=== PATIENT | female | born 1975 | race Caucasian/White ===

== ENCOUNTER → 2018-01-16 | Outpatient (CLI) | payer OTHER | LOC: FIMAGING 09:11 | PROVIDERS: ATTEND Obstetrics & Gynecology | DX: O09.522 Supervision of elderly multigravida, second trimester (principal); D69.6 Thrombocytopenia, unspecified; Z3A.22 22 weeks gestation of pregnancy ==

== ENCOUNTER → 2018-03-27 | Outpatient (CLI) | payer OTHER | LOC: FIMAGING 07:34 | PROVIDERS: ATTEND Obstetrics & Gynecology | DX: O09.523 Supervision of elderly multigravida, third trimester (principal); D69.6 Thrombocytopenia, unspecified; Z3A.33 33 weeks gestation of pregnancy ==

== ENCOUNTER 2018-05-10 22:34 | Inpatient (IN) | payer OTHER ==
[2018-05-10] MEDS ORDERED: OLIVE OIL 118 ML BTL ONE (22:52)
[2018-05-10] MEDS ORDERED: AMMONIA AROMATIC 1 EACH AMP IH ONE (22:52)
[2018-05-10] MEDS ORDERED: LIDOCAINE 1% 300 MG/30 ML SDV ONE (22:52)
[2018-05-10] MEDS ORDERED: TERBUTALINE SULFATE 1 MG/ML VIAL ONE (22:53)
[2018-05-10] MEDS ORDERED: OXYTOCIN 10 UNIT/ML VIAL ONE (22:53)
[2018-05-10] MEDS ORDERED: MISOPROSTOL 200 MCG TAB ONE (22:53)
[2018-05-10] MEDS ORDERED: IBUPROFEN 600 MG TAB PO PRN (23:20)
[2018-05-10] MEDS ORDERED: MISOPROSTOL 200 MCG TAB PR PRN (23:20)
[2018-05-10] MEDS ORDERED: EPSOM SALT 454 GM TP PRN (23:20)
[2018-05-10] MEDS ORDERED: OXYTOCIN/RINGERS LACTATE 1,000 ML IV PRN (23:20)
[2018-05-10] MEDS ORDERED: OLIVE OIL 118 ML BTL MISC PRN (23:20)
[2018-05-10] MEDS ORDERED: LIDOCAINE 1% 300 MG/30 ML SDV SC PRN (23:20)
[2018-05-10] MEDS ORDERED: LR 1,000 ML IV PRN (23:20)
[2018-05-10] MEDS ORDERED: TERBUTALINE SULFATE 1 MG/ML VIAL IV PRN (23:20)
--- NOTE | 2018-05-11 02:03 | PDGENHP ---
History and Physical History and Physical: CARE: [facility] HPI: Patient is a 42 yo G 1 P 0 at 38.5 weeks ega who presents to L&D with complaints of regular painful contractions that started around 1830, her water broke at around 2200 - clear fluid. She presented jenna q 2-3 minutes and very uncomfortable. Cervix was 8/100/0 when she arrived. States baby has been active, and has light bloody show. EDC: 05/19/18 which is based on LMP: 08/12/17 which is known and consistent with Ultrasound at 8 weeks. Her is complicated by: -AMA -Initial UDS + for opiates - (codiene), 2 other random UDS during neg. Patient denied any opiate use - pseudothrombocytopenia - falsely low platelet count. Per [facility]-plt level was checked monthly (needs to be drawn in "citrated" tube or result will not be accurate) -h/o anxiety -no meds, sees therapist - Rubella non-immune Review of Systems: Constitutional: Denies any fever, chills, or fatigue HEENT: denies any visual changes, difficulty swallowing, hearing loss Cardiovascular: Denies any chest pain, palpitations, leg swelling Respiratory: denies any cough, wheezing, or shortness of breathe GI: Denies any nausea, vomiting, diarrhea, constipation : denies any dysuria, urgency, frequency, vaginal bleeding Musculoskeletal: denies any muscle or bone pain Skin: denies any rashes Neuro: denies any headache, seizures, lightheadedness, dizziness, or loss of consciousness Psychiatric: denies any depression, anxiety, or SI/HI thoughts HISTORY: Previous OB history: none Past medical history: anxiety, pseudothrombocytopenia Past surgical history: anal skin tag removed 11/05, thrombosed hemorrhoid removed 06/07, wisdom teeth 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: , 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, 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, 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 Medications: PNV, Vit D Allergies (list reaction): NKDA LABS: Rh: O pos ABS: Neg Rubella: non-Immune HbsAg: NR HIV: NR VDRL: NR 1hr: 144, 3 hour WNL GC: Neg Chlamydia: Neg Pap: Normal GBS: neg PHYSICAL EXAM: Constitutional: WN, A&Ox3 Skin: pink, warm and dry HEENT: normocephalic atraumatic, supple Heart: RRR, no murmur Chest: CTA-B Abdomen: Soft, nontender, gravid SVE: 8/100/0 Extremities: trace edema, negative jorge's sign Neuro: grossly normal Psych: normal affect assessment: Reassuring FHTs, baseline 130s +accels, no decels, moderate variability Contractions: toco q 2-3 Assessment: 1) 42 yo G 1P 0 with IUP@ 38.5 2) active labor 3) GBS neg 4) Cat 1 FHR tracing Plan: 1) Admit to L&D 2) Intermittent monitoring per protocol 3) Diet as tolerated 4) Pain medication as patient desires 5) Anticipate
--- NOTE | 2018-05-11 02:06 | OBDEL ---
Info Type: Vaginal Presentation at Delivery: Vertex L&D Analgesia/Anesthesia Type: None GBS+: No Indications for Delivery: Spontaneous Labor, SROM Vaginal Delivery - Delivery Provider Delivery Physician/CNM: Selena Almendarez - Labor and Delivery Onset of Contractions Date: 05/10/18 Onset of Contractions Time: 18:30 Onset of Contractions Type: Spontaneous Rupture of Membranes Date: 05/10/18 Rupture of Membranes Time: 22:00 Rupture of Membranes Type: Spontaneous Amniotic Fluid Color: Clear Dilation Complete Date: 05/11/18 Dilation Complete Time: 00:45 Placenta Delivery Date: 05/11/18 Placenta Delivery Time: 01:32 Total Hours of Labor: 7 Laceration: Other (Specify) (bilateral labial - no repair) Repair: 3-0, Vicryl Vaginal Sponge Count Correct: Yes Vaginal Needle Count Correct: Yes Vaginal Sweep Performed: No EBL: 200 Delivery Events: Other (Specify) (nuchal arm) - Medications Labor Augmentation/Induction Methods Used: None Data ALEJANDRO: 05/19/18 Gestational Age: 38 week(s) and 6 day(s) [facility] Delivery Date: 05/11/18 Delivery Time: 01:17 Sex of Infant: Male Score (1 Min): 8 Score (5 Min): 9 ICD10 Worksheet Patient Problems: Problems Problem Status Onset Vaginal delivery Acute - ICD10 Problem Qualifiers (1) Vaginal delivery
[2018-05-11] MEDS ORDERED: SIMETHICONE 80 MG TAB CHEW PO PRN (02:20)
[2018-05-11] MEDS ORDERED: HYDROCORTISONE 0.5% CREAM TP PRN (02:20)
[2018-05-11] MEDS ORDERED: HYDROCODONE/APAP 5/325 TAB PO PRN (02:20)
[2018-05-11] MEDS ORDERED: MEASLES,MUMPS&RUBELLA VACC/PF 0.5 ML VIAL SC ONE (02:24)
[2018-05-11] MEDS: ACETAMINOPHEN 325 MG TAB PO SCH ×3 (05:32→15:33)
[2018-05-11] MEDS: DOCUSATE SODIUM 100 MG CAP PO PRN (09:45)
[2018-05-11] MEDS: IBUPROFEN 600 MG TAB PO SCH ×3 (09:45→22:26)
[2018-05-12] MEDS: ACETAMINOPHEN 325 MG TAB PO SCH ×5 (01:12→23:44)
[2018-05-12] MEDS: IBUPROFEN 600 MG TAB PO SCH ×4 (06:30→23:44)
[2018-05-12] MEDS: DOCUSATE SODIUM 100 MG CAP PO PRN (09:51)
--- NOTE | 2018-05-12 12:46 | OBPP ---
Progress Note Assessment/Plan: Assessment: Plan: 05/12/18 12:44 PPD #1 Establishing , baby sleepy at the breast P) 1) Advised to continue ibuprofen q 6 as scheduled for pain control 2) Reviewed ways to wake up baby for feedings, has been in to assist and will be by to check on her again. May want to start pumping if baby continues to be sleepy and not latching well. 3) Plans to discharge home tomorrow Subjective/ Course: 05/12/18 12:43 Doing well overall. Sacrum tender. Baby is sleepy and not staying awake at the breast. Had started weaning off of medication and now noticing increased pain. Objective: 05/10/18 23:28 Patient ABO/Rh O POSITIVE 05/10/18 23:28 Temp Pulse Resp BP Pulse Ox 36.3 C 72 16 101/64 96 05/12/18 09:15 05/12/18 09:15 05/12/18 09:15 05/12/18 09:15 05/12/18 09:15 Breasts soft, nipples intact bilaterally neg jorge's Uterine Position/Fundal Height: Umbilicus -1 Uterine Tone: Firm
[2018-05-12 20:28] VITALS: BP 109/70
[2018-05-13] MEDS: ACETAMINOPHEN 325 MG TAB PO SCH ×3 (00:39→16:05)
[2018-05-13] MEDS: IBUPROFEN 600 MG TAB PO SCH ×3 (00:39→16:03)
[2018-05-13] MEDS: DOCUSATE SODIUM 100 MG CAP PO PRN (00:39)
--- NOTE | 2018-05-13 10:42 | OBPP ---
Progress Note Assessment/Plan: Assessment: Plan: 05/12/18 12:44 PPD #1 Establishing , baby sleepy at the breast P) 1) Advised to continue ibuprofen q 6 as scheduled for pain control 2) Reviewed ways to wake up baby for feedings, has been in to assist and will be by to check on her again. May want to start pumping if baby continues to be sleepy and not latching well. 3) Plans to discharge home tomorrow 05/13/18 10:42 PPD #2 Discharge home today 05/13/18 10:42 Subjective/ Course: 05/12/18 12:43 Doing well overall. Sacrum tender. Baby is sleepy and not staying awake at the breast. Had started weaning off of medication and now noticing increased pain. 05/13/18 10:40 Doing well overall. 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 Baby is starting to latch better and milk has come in on one side. She is pumping to help stimulate milk supply and has used SNS at breast to help baby with latching. He may be staying another night until better established. Objective: 05/10/18 23:28 Patient ABO/Rh O POSITIVE 05/10/18 23:28 Temp Pulse Resp BP Pulse Ox 36.6 C 73 16 109/70 95 05/12/18 20:00 05/12/18 20:00 05/12/18 20:00 05/12/18 20:00 05/12/18 20:00 Breasts full, nipples intact bilaterally Uterine Position/Fundal Height: Umbilicus -1 Uterine Tone: Firm
--- NOTE | 2018-05-13 10:43 | OBGCSDC ---
General Delivery Information - General Info : 1 Para: 1 Abortions: 0 Type: Vaginal L&D Analgesia/Anesthesia Type: None Admission Date: 05/10/18 Labs: Patient ABO/Rh O POSITIVE 05/10/18 23:28 Hct REJ 05/10/18 23:28 - Hospital Course : 05/12/18 12:43 Doing well overall. Sacrum tender. Baby is sleepy and not staying awake at the breast. Had started weaning off of medication and now noticing increased pain. 05/13/18 10:40 Doing well overall. flotation tender helper tail bone but ibuprofen doing well to manage pain. Baby is starting to latch better and milk has come in on one side. She is pumping to help stimulate milk supply and has used SNS at breast to help baby with latching. He may be staying another night until better established. Vaginal - Delivery Provider Delivery Physician/CNM: Selena Almendarez - Diagnosis Labor: Spontaneous Rupture of Membranes Type: Spontaneous Amniotic Fluid Color: Clear Laceration: Other (Specify) (bilateral labial - no repair) Repair: 3-0, Vicryl Delivery Events: Other (Specify) (nuchal arm) - Delivery EBL: 200 [place] Data ALEJANDRO: 05/19/18 Gestational Age: 39 week(s) and 1 day(s) [facility] Delivery Date: 05/11/18 Delivery Time: 01:17 Sex of Infant: Male [place] Weight (gm): 3272 kg Score (1 Min): 8 Score (5 Min): 9 Discharge Information - Discharge Information Condition: Good Instruction/Follow Up: Two Weeks, Four Weeks, Six Weeks
== END 2018-05-13 18:00 | disposition home or self-care (01) | DRG 807 ==
LOC: FLD 22:34 → OBSVTOIN 22:34 → FOB 05-11 04:32
PROVIDERS: ADMIT Advanced Practice Midwife; ATTEND Advanced Practice Midwife
DX: O70.0 First degree perineal laceration during delivery (principal); Z37.0 Single live birth; Z3A.39 39 weeks gestation of pregnancy
CPT/HCPCS: J2590; J3105